=== PATIENT | female | born 1960 | race Caucasian/White ===

== ENCOUNTER 2018-01-13 13:28 | Outpatient (CLI) | payer BC | END 2018-01-13 13:29 | disposition home or self-care (01) | LOC: BICMAMMO 13:28 | PROVIDERS: ATTEND Obstetrics & Gynecology | DX: Z12.31 Encounter for screening mammogram for malignant neoplasm of breast (principal); Z80.3 Family history of malignant neoplasm of breast | CPT/HCPCS: 77063; 77067 ==

== ENCOUNTER 2018-12-27 09:13 | Emergency (ER) | payer BC ==
[2018-12-27 10:04] LABS: #Lymphocytes 0.9 thou/uL (1.20-3.40); #Monocytes 0.3 thou/uL (0.11-0.59); #Neutrophils 8.9 thou/uL (1.40-6.50); %Basophils 0.1 % (0.0-1.0); %Eosinophils 0.2 % (0.0-10.0); %Lymphocytes 9.3 % (21.0-51.0); %Monocytes 2.5 % (0.0-10.0); %Neutrophils 87.9 % (42.0-75.0); Mean Corpuscular HGB CONC 34.1 g/dL (32.0-36.0); Mean Corpuscular Hemoglobin 31.4 pg (27.0-31.0); Mean Platelet Volume 7.9 fL (7.4-10.4); Platelet Count 236 thou/uL (130-400); RBC Distribution Width 11.3 % (11.5-14.5); Red Blood Cell (RBC) Count 4.15 mill/uL (4.20-5.40); White Blood Cell (WBC) Count 10.1 thou/uL (4.8-10.8)
[2018-12-27 10:19] LABS: ALT (SGPT) 28 U/L (8-55); AST (SGOT) 19 U/L (5-34); Albumin 4.2 g/dL (3.5-5.0); Alkaline Phosphatase 137 U/L (40-150); Anion Gap 11 mmol/L (10-20); BUN (Urea Nitrogen) 10 mg/dL (9.8-20.1); Bilirubin, Total 0.5 mg/dL (0.2-1.2); Calc. Creatinine Clearance 0 mL/min (70-130); Calcium 9.9 mg/dL (7.8-10.44); Carbon Dioxide 27 mmol/L (22-29); Chloride 104 mmol/L (98-107); Estimated GFR-MDRD 85; Glucose 124 mg/dL (70-105); Lipase 30 U/L (8-78); Potassium 4.7 mmol/L (3.5-5.1); Protein, Total 7.2 g/dL (6.0-8.3); Sodium 137 mmol/L (136-145)
--- NOTE | 2018-12-27 11:24 | RAD ---
PORTABLE CHEST: HISTORY: Chest pain. FINDINGS: Heart size is enlarged. Mediastinal structures are unremarkable. Lungs are clear of infiltrates. N o signs of failure. IMPRESSION: Cardiomegaly. POS: TPC
[2018-12-27] MEDS ORDERED: Lidocaine Viscous Sol 2% 15 ml UD Cup ONE (11:50)
[2018-12-27] MEDS ORDERED: Mag-Al 1200 mg/1200 mg/30 ML UDCUP ONE (11:50)
--- NOTE | 2018-12-27 12:54 | ULT ---
RIGHT UPPER QUADRANT ULTRASOUND: DATE: 12/27/2018. PROVIDED CLINICAL HISTORY: Abdominal pain. FINDINGS: Visualized portions of the pancreas appear normal. The liver demonstrates no mass or intrahepatic bi liary ductal dilatation. The common duct is not dilated. Gallbladder demonstrates multiple mobile s hadowing echogenic foci compatible with gallstones. There is no evidence for wall thickening or hever cholecystic fluid. The topology professor documents a negative sonographic Chow's sign. The right kidney demonstrates no evidence for hydronephrosis or mass. IMPRESSION: Cholelithiasis without evidence for acute findings related to the gallbladder sonographically. POS: OFF
--- NOTE | 2018-12-31 16:10 | EKG ---
Test Reason : Blood Pressure : / mmHG Vent. Rate : 066 BPM Atrial Rate : 066 BPM P-R Int : 188 ms QRS Dur : 080 ms QT Int : 400 ms P-R-T Axes : 046 018 026 degrees QTc Int : 419 ms Normal sinus rhythm Normal ECG Confirmed by YASMIN DIAMOND M.D. ([id number]), society editor STEVEN BIRD ([id number] on 12/31/2018 4:10:30 PM Referred By: Confirmed By:YASMIN DIAMOND M.D.
== END 2018-12-27 13:11 | disposition home or self-care (01) ==
LOC: ERS 09:13
DX: K80.20 Calculus of gallbladder without cholecystitis without obstruction (principal); I10 Essential (primary) hypertension; Z79.899 Other long term (current) drug therapy
CPT/HCPCS: 36415; 71045; 76705; 80053; 82550; 83690; 83880; 84484; 85025; 93005

== ENCOUNTER 2019-01-17 11:39 | Outpatient (CLI) | payer BC ==
[2019-01-17 13:47] LABS: #Eosinphils 0.1 thou/uL (0.0-0.7); #Lymphocytes 1.8 thou/uL (1.20-3.40); #Monocytes 0.3 thou/uL (0.11-0.59); #Neutrophils 3.8 thou/uL (1.40-6.50); %Basophils 0.3 % (0.0-1.0); %Eosinophils 1.2 % (0.0-10.0); %Monocytes 5.2 % (0.0-10.0); %Neutrophils 63.3 % (42.0-75.0); Mean Corpuscular HGB CONC 34.2 g/dL (32.0-36.0); Mean Corpuscular Hemoglobin 31.3 pg (27.0-31.0); Mean Corpuscular Volume 91.7 fL (78.0-98.0); Mean Platelet Volume 8.5 fL (7.4-10.4); Platelet Count 222 thou/uL (130-400); Red Blood Cell (RBC) Count 4.15 mill/uL (4.20-5.40)
[2019-01-17 14:08] LABS: ALT (SGPT) 33 U/L (8-55); AST (SGOT) 21 U/L (5-34); Albumin 4.2 g/dL (3.5-5.0); Alkaline Phosphatase 140 U/L (40-150); Anion Gap 13 mmol/L (10-20); BUN (Urea Nitrogen) 11 mg/dL (9.8-20.1); Bilirubin, Direct 0.3 mg/dL (0.1-0.3); Bilirubin, Total 0.6 mg/dL (0.2-1.2); Calc. Creatinine Clearance 0 mL/min (70-130); Calcium 9.4 mg/dL (7.8-10.44); Carbon Dioxide 27 mmol/L (22-29); Chloride 105 mmol/L (98-107); Estimated GFR-MDRD 85; Globulin 2.5 g/dL (2.4-3.5); Glucose 80 mg/dL (70-105); Protein, Total 6.7 g/dL (6.0-8.3); Sodium 141 mmol/L (136-145)
== END 2019-01-17 11:40 | disposition home or self-care (01) ==
LOC: LABBT 11:39
PROVIDERS: ATTEND Surgery
DX: Z01.818 Encounter for other preprocedural examination (principal); K80.20 Calculus of gallbladder without cholecystitis without obstruction
CPT/HCPCS: 80053; 80076; 85025; 93005; 93010

== ENCOUNTER 2019-01-20 08:22 | Day surgery (SDC) | payer BC ==
[2019-01-17 11:41] VITALS: BMI 36.2
[2019-01-20] MEDS ORDERED: Sodium Chloride 0.9% 100 ML ONE (09:13)
[2019-01-20] MEDS ORDERED: cefOXitin 2 GM VIAL ONE (09:13)
[2019-01-20] MEDS ORDERED: Bupivacaine/Epinephrine 0.25% 30 ML VIAL ONE (09:37)
[2019-01-20] MEDS ORDERED: Fentanyl 100 MCG/2 ML VIAL ONE ×2 (09:57→10:45)
[2019-01-20] MEDS ORDERED: SUGAMMADEX SODIUM 200 MG/2 ML VIAL ONE (10:32)
[2019-01-20] MEDS ORDERED: Promethazine HCl 25 MG/ML VIAL ONE (10:45)
--- NOTE | 2019-01-20 11:32 | OP ---
DATE OF PROCEDURE: 01/20/2019 PREOPERATIVE DIAGNOSIS: Symptomatic cholelithiasis. PROCEDURE PERFORMED: Laparoscopic cholecystectomy. INDICATIONS: This is a 58-year-old female, who has been having episodic right upper quadrant pain radiating to back, associated with nausea. Ultrasound showed cholelithiasis. FINDINGS: No acute findings. She had some morbid obesity with quite a bit of visceral fat making the procedure a little more difficult. The cystic duct was small caliber. DESCRIPTION OF PROCEDURE: After informed consent was obtained, the patient was taken to the operating room, given general endotracheal anesthesia, placed in supine position. Abdomen was prepped and draped in usual fashion. Local anesthesia infiltrated subcutaneously and deep. A subumbilical incision performed. Subcu divided sharply. The fascia was grasped with two stay sutures of 0 Vicryl placed in each side of midline. Midline incised. Digital palpation revealed no local adhesions. Blunt 12 mm trocar inserted. Pneumoperitoneum was created to a pressure of 15 mmHg. A 0 degree laparoscope was inserted under direct vision. Three 5 mm ports were placed subcostally. Gallbladder was grasped and advanced superiorly. Peritoneum lysed distally to expose the cystic duct and artery in critical view. The duct and artery triply ligated with hemoclips and divided. The gallbladder was removed from its fossa utilizing electrocautery, removed from the abdomen in an endosac through the umbilical port. Hemostasis assured. Trocars and retractors removed. The fascia was closed with interrupted 2-0 Vicryl sutures. Skin closed with interrupted 4-0 Rapide. Dermabond applied. The patient tolerated the procedure well, transferred to Recovery in good condition. Sponge and needle count verified correct x2. Job ID: [id number]
[2019-01-20] MEDS ORDERED: HYDROcodone/Acetaminophen 5/325 mg Tablet ONE (11:50)
[2019-01-20] MEDS ORDERED: Rocuronium Bromide 10 MG/ML (10ML VIAL) ONE (14:58)
[2019-01-20] MEDS ORDERED: PROPOFOL 200 MG/20 ML VIAL ONE (14:58)
[2019-01-20] MEDS ORDERED: Glycopyrrolate 0.2 MG/ML 5 ML SYRINGE ONE (14:58)
[2019-01-20] MEDS ORDERED: Lidocaine 1% PF 5 ML VIAL ONE (14:58)
[2019-01-20] MEDS ORDERED: Ondansetron PF 4 MG/2 ML Vial ONE (14:58)
[2019-01-20] MEDS ORDERED: Ketorolac Tromethamine 30 MG/ML VIAL ONE (14:58)
== END 2019-01-20 12:53 | disposition home or self-care (01) ==
LOC: SDC 08:22
PROVIDERS: ATTEND Surgery
PROC: 0FT44ZZ Resection of Gallbladder, Percutaneous Endoscopic Approach (ICD-10-PCS; principal; 2019-01-20)
DX: K80.10 Calculus of gallbladder with chronic cholecystitis without obstruction (principal); E66.01 Morbid (severe) obesity due to excess calories; Z68.36 Body mass index [BMI] 36.0-36.9, adult; Z79.82 Long term (current) use of aspirin; Z79.899 Other long term (current) drug therapy
CPT/HCPCS: 88304; J0694; J1885; J2001; J2405; J2550; J2704; J3010; J3490

== ENCOUNTER 2020-08-01 09:02 | Outpatient (CLI) | payer OTHER ==
--- NOTE | 2020-08-01 10:14 | BD ---
EXAM: DEXA bone density examination HISTORY: 59-year-old postmenopausal female for screening COMPARISON: None FINDINGS: L1--bone mineral density 0.856 g/sq cm; T score -1.2 L2--bone mineral density 0.986 g/sq cm; T score -0.4 L3--bone mineral density 0.905 g/sq cm; T score -1.6 L4--bone mineral density 0.963 g/sq cm; T score -0.9 Total L1-L4--bone mineral density 0.931 g/sq cm; T score -1.1 Left femoral neck--bone mineral density0.751; T score -0.9 Total proximal left femur--bone mineral density 1.024; T score 0.7 IMPRESSION: Osteopenia. This patient has a 10 year WHO fracture risk of a major osteoporotic fracture of 6.7% and of a hip fracture of 0.3%.
== END 2020-08-01 09:03 | disposition home or self-care (01) ==
LOC: BICMAMMO 09:02
PROVIDERS: ATTEND Student in an Organized Health Care Education/Training Program
DX: Z13.820 Encounter for screening for osteoporosis (principal); M85.88 Other specified disorders of bone density and structure, other site
CPT/HCPCS: 77080